=== PATIENT | male | born 1990 | race Caucasian/White ===

== ENCOUNTER 2023-06-23 11:43 | Inpatient (IN) | payer OTHER ==
[2023-06-23 12:19] VITALS: BMI 19.2
[2023-06-23] MEDS ORDERED: DICYCLOMINE HCL 10 MG CAPSULE PO PRN (13:11)
[2023-06-23] MEDS ORDERED: NALOXONE HCL 0.4 MG/ML VIAL IM PRN (13:11)
[2023-06-23] MEDS ORDERED: guaiFENesin 600 MG TABLET.ER (FP) PO PRN (13:11)
[2023-06-23] MEDS ORDERED: LOPERAMIDE HCL 2 MG CAPSULE PO PRN (13:11)
[2023-06-23] MEDS ORDERED: MAGNESIUM HYDROX 2400MG/30ML ORAL SUSPENSION 30 ML CUP PO PRN (13:11)
[2023-06-23] MEDS ORDERED: IBUPROFEN 600 MG TABLET (FP) PO PRN (13:11)
[2023-06-23] MEDS ORDERED: BENZONATATE 200 MG CAPSULE PO PRN (13:11)
[2023-06-23] MEDS ORDERED: ONDANSETRON *ODT* 4 MG TABLET SL PRN (13:11)
[2023-06-23] MEDS ORDERED: BISMUTH SUBSALICYLATE 524 MG/30 ML PO PRN (13:11)
[2023-06-23] MEDS ORDERED: IBUPROFEN 400 MG TABLET (FP) PO PRN (13:11)
[2023-06-23] MEDS ORDERED: BENZOCAINE/MENTHOL (CHLORASEPTIC ) LOZENGE MM PRN (13:11)
[2023-06-23] MEDS ORDERED: MAG HYDROX/AL HYDROX/SIMETH 30 ML UNIT-DOSE CUP PO PRN (13:11)
[2023-06-23] MEDS ORDERED: POLYETHYLENE GLYCOL (HEALTHYLAX) 3350 17 GM PACKET PO PRN (13:11)
[2023-06-23] MEDS ORDERED: NALOXONE HCL (KLOXXADO) 8 MG SPRAY NS PRN (13:11)
[2023-06-23] MEDS ORDERED: ACETAMINOPHEN 325 MG TABLET (FP) PO PRN (13:11)
[2023-06-23] MEDS ORDERED: P-EPHED 60MG/TRIPROLIDI 2.5MG TABLET PO PRN (13:11)
[2023-06-23] MEDS ORDERED: hydrOXYzine PAMOATE 25 MG CAPSULE (FP) PO ONE (14:16)
[2023-06-23] MEDS ORDERED: cloNIDine HCL 0.1 MG TABLET PO PRN (18:05)
[2023-06-23] MEDS ORDERED: methaDONE HCL 10 MG TABLET (FOR DETOX USE ONLY) PO ONE (18:20)
[2023-06-23] MEDS: MELATONIN 5 MG TABLETS PO SCH (22:13)
[2023-06-23] MEDS: THIAMINE HCL 100 MG TABLET (FP) PO SCH (22:13)
[2023-06-23] MEDS: hydrOXYzine PAMOATE 25 MG CAPSULE (FP) PO PRN (22:15)
[2023-06-23] MEDS: METHOCARBAMOL 500 MG TABLET PO PRN (22:15)
[2023-06-24] MEDS: hydrOXYzine PAMOATE 25 MG CAPSULE (FP) PO PRN ×3 (07:55→22:06)
[2023-06-24 08:29] LABS: POTASSIUM 4.1 mmol/L (3.5-5.1)
[2023-06-24 08:30] LABS: HEMATOCRIT 37.6 % (35.4-49); HEMOGLOBIN 12.5 GM/dL (11.7-16.9); MCH 30.1 pg (25.7-33.7); MCHC 33.1 g/dl (32.0-35.9); MEAN CELL VOLUME 90.8 fl (80-96); MEAN PLT VOLUME 8.9 fl (7.5-11.1); PLATELET COUNT 288 10^3/uL (134-434); RBC 4.14 M/mm3 (4.00-5.60); RDW 13.8 % (11.9-15.9); WHITE BLOOD COUNT 7.1 K/mm3 (4.0-10.0)
[2023-06-24 08:31] LABS: ALBUMIN 3.3 g/dl (3.4-5.0); BLOOD UREA NITROGEN 14.2 mg/dL (7-18); CALCIUM 8.9 mg/dL (8.5-10.1)
[2023-06-24 08:35] LABS: CREATININE 0.9 mg/dL (0.55-1.3)
[2023-06-24 08:36] LABS: BILIRUBIN,TOTAL 0.2 mg/dL (0.2-1); TOT PROT 7.2 g/dl (6.4-8.2)
[2023-06-24] MEDS: diazePAM 5 MG TABLET PO PRN ×4 (10:05→23:27)
[2023-06-24] MEDS: PRENATAL VITAMINS W/ FOLIC ACID TABLET (FP) PO SCH (10:05)
[2023-06-24] MEDS: METHOCARBAMOL 500 MG TABLET PO PRN (22:05)
[2023-06-24] MEDS: THIAMINE HCL 100 MG TABLET (FP) PO SCH (22:05)
[2023-06-24] MEDS: MELATONIN 5 MG TABLETS PO SCH (22:05)
[2023-06-25] MEDS: diazePAM 5 MG TABLET PO PRN ×4 (04:53→22:06)
[2023-06-25] MEDS: PRENATAL VITAMINS W/ FOLIC ACID TABLET (FP) PO SCH (09:23)
[2023-06-25] MEDS ORDERED: methaDONE HCL 10 MG TABLET (FOR DETOX USE ONLY) PO ONE (10:00)
[2023-06-25] MEDS: hydrOXYzine PAMOATE 25 MG CAPSULE (FP) PO PRN ×2 (12:09→22:06)
[2023-06-25] MEDS: MELATONIN 5 MG TABLETS PO SCH (22:06)
[2023-06-25] MEDS: METHOCARBAMOL 500 MG TABLET PO PRN (22:06)
[2023-06-25] MEDS: THIAMINE HCL 100 MG TABLET (FP) PO SCH (22:07)
[2023-06-26] MEDS: diazePAM 5 MG TABLET PO PRN ×2 (03:07→08:51)
[2023-06-26] MEDS: NICOTINE POLACRILEX 2 MG GUM BUC PRN ×2 (05:45→08:52)
[2023-06-26] MEDS: PRENATAL VITAMINS W/ FOLIC ACID TABLET (FP) PO SCH (10:06)
[2023-06-26] MEDS: clonazePAM 0.5 MG ODT TABLETS SL PRN ×2 (14:13→20:29)
[2023-06-26] MEDS: SULFAMETHOXAZOLE/TRIMETHOPRIM 800MG/160MG D.S. TABLET PO SCH ×2 (17:28→22:18)
[2023-06-26] MEDS: hydrOXYzine PAMOATE 25 MG CAPSULE (FP) PO PRN (17:50)
[2023-06-26] MEDS: MUPIROCIN 2% TOPICAL OINTMENT 22 GM TUBE TP SCH ×2 (18:06→22:24)
[2023-06-26] MEDS ORDERED: levETIRAcetam 500 MG TABLET (FP) PO SCH (22:00)
[2023-06-26] MEDS: MELATONIN 5 MG TABLETS PO SCH (22:18)
[2023-06-26] MEDS: METHOCARBAMOL 500 MG TABLET PO PRN (22:18)
[2023-06-26] MEDS: THIAMINE HCL 100 MG TABLET (FP) PO SCH (22:18)
[2023-06-27] MEDS: clonazePAM 0.5 MG ODT TABLETS SL PRN (05:17)
[2023-06-27] MEDS: MUPIROCIN 2% TOPICAL OINTMENT 22 GM TUBE TP SCH (05:29)
[2023-06-27 06:45] VITALS: TEMP 98.6
[2023-06-27 09:20] VITALS: BP 107/65; PULSE 81; RESP 16
[2023-06-27] MEDS ORDERED: methaDONE HCL 10 MG TABLET (FOR DETOX USE ONLY) PO ONE (10:00)
[2023-06-27] MEDS: SULFAMETHOXAZOLE/TRIMETHOPRIM 800MG/160MG D.S. TABLET PO SCH (10:02)
[2023-06-27] MEDS: PRENATAL VITAMINS W/ FOLIC ACID TABLET (FP) PO SCH (10:02)
[2023-06-27] MEDS: METHOCARBAMOL 500 MG TABLET PO PRN (11:40)
== END 2023-06-27 11:47 | disposition home or self-care (01) | DRG 773 ==
LOC: YASAS 11:43 → Y3N 13:29
PROVIDERS: ADMIT Allergy & Immunology; ATTEND Surgery
PROC: HZ2ZZZZ Detoxification Services for Substance Abuse Treatment (ICD-10-PCS; principal; 2023-06-23)
DX: F11.23 Opioid dependence with withdrawal (principal); F14.20 Cocaine dependence, uncomplicated; F13.20 Sedative, hypnotic or anxiolytic dependence, uncomplicated; F12.20 Cannabis dependence, uncomplicated; F17.210 Nicotine dependence, cigarettes, uncomplicated; F19.280 Other psychoactive substance dependence with psychoactive substance-induced anxiety disorder; F19.282 Other psychoactive substance dependence with psychoactive substance-induced sleep disorder; F19.24 Other psychoactive substance dependence with psychoactive substance-induced mood disorder; T87.89 Other complications of amputation stump; Z89.511 Acquired absence of right leg below knee; Z99.89 Dependence on other enabling machines and devices; Z62.810 Personal history of physical and sexual abuse in childhood; Z28.310 Unvaccinated for COVID-19; Z28.9 Immunization not carried out for unspecified reason
CPT/HCPCS: 36415; 80053; 85027; 86780; 87070; 87186; 87205; 87635; 87811; Q0162

== ENCOUNTER 2024-05-24 13:58 | Inpatient (IN) | payer OTHER ==
[2024-05-24] MEDS ORDERED: DICYCLOMINE HCL 10 MG CAPSULE PO PRN (15:07)
[2024-05-24] MEDS ORDERED: MAG HYDROX/AL HYDROX/SIMETH 30 ML UNIT-DOSE CUP PO PRN (15:07)
[2024-05-24] MEDS ORDERED: guaiFENesin 600 MG TABLET.ER (FP) PO PRN (15:07)
[2024-05-24] MEDS ORDERED: IBUPROFEN 600 MG TABLET (FP) PO PRN (15:07)
[2024-05-24] MEDS ORDERED: ACETAMINOPHEN 325 MG TABLET (FP) PO PRN (15:07)
[2024-05-24] MEDS ORDERED: BENZONATATE 200 MG CAPSULE PO PRN (15:07)
[2024-05-24] MEDS ORDERED: IBUPROFEN 400 MG TABLET (FP) PO PRN (15:07)
[2024-05-24] MEDS ORDERED: BENZOCAINE/MENTHOL (CHLORASEPTIC ) LOZENGE MM PRN (15:07)
[2024-05-24] MEDS ORDERED: MAGNESIUM HYDROX 2400MG/30ML ORAL SUSPENSION 30 ML CUP PO PRN (15:07)
[2024-05-24] MEDS ORDERED: POLYETHYLENE GLYCOL (HEALTHYLAX) 3350 17 GM PACKET PO PRN (15:07)
[2024-05-24] MEDS ORDERED: hydrOXYzine PAMOATE 25 MG CAPSULE (FP) PO PRN (15:07)
[2024-05-24] MEDS ORDERED: METHOCARBAMOL 500 MG TABLET PO PRN (15:07)
[2024-05-24] MEDS ORDERED: BISMUTH SUBSALICYLATE 524 MG/30 ML PO PRN (15:07)
[2024-05-24] MEDS ORDERED: NALOXONE (NARCAN) HCL 4 MG/0.1 ML SPRAY NS PRN (15:07)
[2024-05-24] MEDS ORDERED: ONDANSETRON *ODT* 4 MG TABLET SL PRN (15:07)
[2024-05-24] MEDS ORDERED: LOPERAMIDE HCL 2 MG CAPSULE PO PRN (15:07)
[2024-05-24 15:53] VITALS: BMI 15.6
[2024-05-24] MEDS ORDERED: cloNIDine HCL 0.1 MG TABLET ONE (17:48)
[2024-05-24] MEDS ORDERED: methaDONE HCL 10 MG TABLET (FOR DETOX USE ONLY) ONE (17:48)
[2024-05-24] MEDS: cloNIDine HCL 0.1 MG TABLET PO SCH (17:55)
[2024-05-24] MEDS: methaDONE HCL 10 MG TABLET (FOR DETOX USE ONLY) PO ONE (17:55)
[2024-05-24] MEDS: PRENATAL VITAMINS W/ FOLIC ACID TABLET (FP) PO SCH (19:08)
[2024-05-24] MEDS: NICOTINE 14 MG/24 HOURS TOPICAL PATCH TD SCH (19:08)
[2024-05-24] MEDS: MELATONIN 5 MG TABLETS PO SCH (22:42)
[2024-05-24] MEDS: THIAMINE 100 MG TABLET PO SCH (22:42)
[2024-05-24] MEDS: BUPRENORPHINE/NALOXONE 0.5 MG/0.125 MG FILM SL ONE (23:41)
[2024-05-25] MEDS: BUPRENORPHINE/NALOXONE 0.5 MG/0.125 MG FILM SL SCH (10:20)
[2024-05-25 16:06] LABS: POTASSIUM 3.7 mmol/L (3.5-5.1)
[2024-05-25 16:12] LABS: ALBUMIN 3.2 g/dl (3.4-5.0); CALCIUM 8.9 mg/dL (8.5-10.1)
[2024-05-25 16:14] LABS: HEMATOCRIT 33.9 % (35.4-49); HEMOGLOBIN 11.2 GM/dL (11.7-16.9); MCH 30.3 pg (25.7-33.7); MCHC 32.9 g/dl (32.0-35.9); MEAN CELL VOLUME 91.9 fl (80-96); MEAN PLT VOLUME 8.8 fl (7.5-11.1); PLATELET COUNT 313 10^3/uL (134-434); RBC 3.69 M/mm3 (4.00-5.60); RDW 14.2 % (11.9-15.9); WHITE BLOOD COUNT 4.5 K/mm3 (4.0-10.0)
[2024-05-25 16:16] LABS: BLOOD UREA NITROGEN 13.8 mg/dL (7-18); CREATININE 0.9 mg/dL (0.55-1.3)
[2024-05-25 16:18] LABS: BILIRUBIN,TOTAL 0.3 mg/dL (0.2-1)
[2024-05-25 16:21] LABS: TOT PROT 6.3 g/dl (6.4-8.2)
[2024-05-25 19:19] LABS: HIV INTERPRETATION NEGATIVE (NEGATIVE)
[2024-05-25 21:18] VITALS: RESP 16
[2024-05-26] MEDS: MELATONIN 5 MG TABLETS PO ONE (00:56)
[2024-05-26 08:41] VITALS: BP 90/56; PULSE 78; TEMP 97.6
[2024-05-26] MEDS: methaDONE HCL 10 MG TABLET (FOR DETOX USE ONLY) PO ONE (10:16)
[2024-05-26] MEDS: BUPRENORPHINE/NALOXONE 2 MG/0.5 MG FILM PACKET SL SCH (10:16)
[2024-05-27] MEDS ORDERED: BUPRENORPHINE/NALOXONE 4 MG/1 MG FILM PACKET SL SCH (10:00)
[2024-05-28] MEDS ORDERED: BUPRENORPHINE/NALOXONE 8 MG/2 MG FILM PACKET SL SCH (10:00)
[2024-05-28] MEDS ORDERED: methaDONE HCL 10 MG TABLET (FOR DETOX USE ONLY) PO ONE (10:00)
[2024-05-29] MEDS ORDERED: BUPRENORPHINE/NALOXONE 8 MG/2 MG FILM PACKET SL SCH (10:00)
== END 2024-05-26 10:07 | disposition left against medical advice (07) | DRG 770 ==
LOC: YASAS 13:58 → Y6N 17:20
PROVIDERS: ADMIT Allergy & Immunology; ATTEND Surgery
PROC: HZ2ZZZZ Detoxification Services for Substance Abuse Treatment (ICD-10-PCS; principal; 2024-05-24)
DX: F11.23 Opioid dependence with withdrawal (principal); F14.20 Cocaine dependence, uncomplicated; F17.210 Nicotine dependence, cigarettes, uncomplicated; F41.9 Anxiety disorder, unspecified; F32.A Depression, unspecified; T87.89 Other complications of amputation stump; Z89.612 Acquired absence of left leg above knee; Z99.89 Dependence on other enabling machines and devices
CPT/HCPCS: 36415; 80053; 80305; 85027; 86780; 86803; 87389; 87522; 93005; 93010